=== PATIENT | female | born 1990 | race Caucasian/White ===

== ENCOUNTER → 2018-02-09 | Outpatient (CLI) | payer OTHER ==
--- NOTE | 2018-02-10 06:53 | US ---
EXAMINATION TYPE: US transvaginal DATE OF EXAM: 02/09/2018 COMPARISON: US 2009 CLINICAL HISTORY: N92.1 METRORRHAGIA. Pt states generalized pelvic pain, recent abnormal labs per phy sician, and late menses TECHNIQUE: Transvaginal (TV). Date of LMP: 12/30/2017 EXAM MEASUREMENTS: Uterus: 7.8 x 4.5 x 5.0 cm Endometrial Stripe: 1.4 cm Right Ovary: 3.0 x 1.5 x 2.2 cm Left Ovary: 2.9 x 2.1 x 3.0 cm 1. Uterus: Retroverted wnl 2. Endometrium: Thickened 3. Right Ovary: wnl 4. Left Ovary: wnl 5. Bilateral Adnexa: wnl 6. Posterior cul-de-sac: Small amount of free fluid Retroverted uterus is seen. Endometrium is within normal limits for late secretory phase of menstrual cycle. Small amount of free fluid is seen in pelvic cul-de-sac. Both ovaries are seen. No suspicious ovarian or adnexal masses clearly identified. IMPRESSION: Endometrial thickness upper limits of normal based on last known menstrual period. Small amount of free fluid in pelvic cul-de-sac is nonspecific.
== END ==
LOC: RADUSWWP 16:14
PROVIDERS: ATTEND Obstetrics & Gynecology
DX: N92.1 Excessive and frequent menstruation with irregular cycle (principal)
CPT/HCPCS: 76830